=== PATIENT | male | born 1965 | race Caucasian/White ===

== ENCOUNTER 2019-08-11 00:03 | Emergency (ER) | payer BC, OTHER ==
[2019-08-11 00:15] VITALS: BP 126/75; PULSE 85
[2019-08-11] MEDS ORDERED: Ondansetron 4 MG/2 ML SDV IVPUSH ONE (00:30)
[2019-08-11] MEDS ORDERED: HYDROmorphone 1 MG/ML Syringe IVPUSH ONE (00:30)
[2019-08-11] MEDS ORDERED: Ketorolac 30 MG/ML SDV IVPUSH ONE (00:31)
--- NOTE | 2019-08-11 00:36 | EDM.PDOC ---
ED HPI GENERAL MEDICAL PROBLEM - General Chief Complaint: Flank Pain Stated Complaint: KIDNEY PAIN RIGHT SIDE Time Seen by Provider: 08/11/19 00:23 Source of Information: Reports: Patient History Limitations: Reports: No Limitations - History of Present Illness INITIAL COMMENTS - FREE TEXT/NARRATIVE: This is a 54-year-old male. Onset with right mid back pain. 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 It hurt with movement and hurt without movement. The next day he continued to do a lot of lifting and bending and did some driving and the pain continued to get worse and worse he had a difficult time sleeping Monday night secondary to the right flank pain. He denies any nausea or vomiting with the pain but it does stop them in his tracks and he feels like he is having muscle spasms as well as just pain. On one occasion he felt like the pain went down into his right lower quadrant like the pain of a kidney stone but he has no history of kidney stones. He has not seen any blood in his urine he has not had any fever or chills. Due to the increasing pain he comes to the ER. Right Flank Pain Score (Numeric/FACES): 10 - Related Data Allergies Allergy/AdvReac Type Severity Reaction Status Date / Time aspirin Allergy Severe Bleeding Verified 08/11/19 00:15 NSAIDS (Non-Steroidal Allergy Severe Bleeding Verified 08/11/19 00:15 Anti-Inflamma Home Meds: Home Meds LORazepam [Ativan] 1 mg PO ASDIRECTED PRN #15 tablet 05/12/15 [Rx] Cyclobenzaprine [Flexeril] 10 mg PO TID PRN #20 tab 08/11/19 [Rx] Past Medical History Other Respiratory History: left hemothorax - Past Surgical History Other Musculoskeletal Surgeries/Procedures:: reconstruction of knees ED ROS GENERAL - Review of Systems Review Of Systems: See Below Constitutional: Denies: Fever, Chills HEENT: Reports: No Symptoms Respiratory: Reports: Shortness of Breath, Other (Shortness of breath is secondary to the pain not because he short of breath) Cardiovascular: Reports: No Symptoms Endocrine: Reports: No Symptoms GI/Abdominal: Reports: Abdominal Pain. Denies: Constipation, Diarrhea, Nausea, Vomiting : Reports: Flank Pain. Denies: Dysuria, Hematuria Musculoskeletal: Reports: Back Pain Skin: Reports: No Symptoms Neurological: Reports: No Symptoms Psychiatric: Reports: No Symptoms Hematologic/Lymphatic: Reports: No Symptoms ED EXAM,LOWER BACK PAIN/INJURY - Physical Exam Exam: See Below Exam Limited By: No Limitations General Appearance: Alert, WD/WN, Moderate Distress Eye Exam: Bilateral Eye: Normal Inspection Ears: Normal External Exam Nose: Normal Inspection Throat/Mouth: Normal Inspection, Normal Lips, Normal Voice, No Airway Compromise Head: Normocephalic Neck: Supple Respiratory/Chest: Lungs Clear, Other (Patient is having a hard time breathing because deep breathing causes increased pain in his right flank area, his lungs are clear however there is no rales wheezes or rhonchi.) Cardiovascular: Regular Rate, Rhythm, No Murmur GI/Abdominal: Other (Tender in the right flank as well, bowel sounds are decreased, he tends to keep his abdomen tight, it is difficult to palpate his abdomen since he is holding it so tightly, my concern is this could be a rigid abdomen. He is the pain up he seemed to have a soft abdomen and didn't really complain pushing on that right side however once I got around to the edge of his right ribs laterally and posteriorly had marked increased pain. ) Back Exam: CVA Tenderness (R), Decreased Range of Motion, Muscle Spasm Extremities: Normal Inspection, Normal Range of Motion Neurological: Alert, Normal Mood/Affect, No Motor/Sensory Deficits Psychiatric: Anxious Skin Exam: Warm, Dry Course - Vital Signs Last Recorded V/S: Last Vital Signs Temp 97.6 F 08/11/19 00:12 Pulse 85 08/11/19 00:12 Resp 20 08/11/19 00:12 BP 126/75 08/11/19 00:12 Pulse Ox 98 08/11/19 00:12 - Orders/Labs/Meds Orders: Active Orders 24 hr Category Date Time Status Abdomen Pelvis wo Cont [CT] Stat Exams 08/11/19 00:31 Taken Magnesium Citrate [Citrate of Magnesia] Med 08/11/19 02:51 Once 296 ml PO ONETIME ONE Labs: Laboratory Tests 08/11/19 08/11/19 08/11/19 Range/Units 00:21 00:21 00:21 WBC 13.38 H (4.23-9.07) K/mm3 RBC 5.13 (4.63-6.08) M/mm3 Hgb 16.0 (13.7-17.5) gm/dl Hct 46.1 (40.1-51.0) % MCV 89.9 (79.0-92.2) fl MCH 31.2 (25.7-32.2) pg MCHC 34.7 (32.2-35.5) g/dl RDW Std Deviation 46.0 H (35.1-43.9) fL Plt Count 386 H (163-337) K/mm3 MPV 9.1 L (9.4-12.3) fl Neut % (Auto) 51.8 (34.0-67.9) % Lymph % (Auto) 33.0 (21.8-53.1) % [place] % (Auto) 11.5 (5.3-12.2) % Eos % (Auto) 3.0 (0.8-7.0) Baso % (Auto) 0.5 (0.1-1.2) % Neut # (Auto) 6.93 H (1.78-5.38) K/mm3 Lymph # (Auto) 4.41 H (1.32-3.57) K/mm3 Motley # (Auto) 1.54 H (0.30-0.82) K/mm3 Eos # (Auto) 0.40 (0.04-0.54) K/mm3 Baso # (Auto) 0.07 (0.01-0.08) K/mm3 Manual Slide Review Abnormal smear Sodium 137 (136-145) mEq/L Potassium 3.6 (3.5-5.1) mEq/L Chloride 102 (98-107) mEq/L Carbon Dioxide 20 L (21-32) mEq/L Anion Gap 18.6 H (5-15) BUN 14 (7-18) mg/dL Creatinine 1.1 (0.7-1.3) mg/dL Est Cr Clr Drug Dosing 83.67 mL/min Estimated GFR (MDRD) > 60 (>60) mL/min BUN/Creatinine Ratio 12.7 L (14-18) Glucose 128 H (74-106) mg/dL Calcium 9.6 (8.5-10.1) mg/dL Total Bilirubin 0.3 (0.2-1.0) mg/dL AST 20 (15-37) U/L ALT 37 (16-63) U/L Alkaline Phosphatase 128 H (46-116) U/L C-Reactive Protein 1.7 H* (<1.0) mg/dL Total Protein 7.9 (6.4-8.2) g/dl Albumin 3.7 (3.4-5.0) g/dl Globulin 4.2 gm/dL Albumin/Globulin Ratio 0.9 L (1-2) Urine Color (Yellow) Urine Appearance (Clear) Urine pH (5.0-8.0) Ur Specific [place] (1.005-1.030) Urine Protein (Negative) Urine Glucose (UA) (Negative) Urine Ketones (Negative) Urine Occult Blood (Negative) Urine Nitrite (Negative) Urine Bilirubin (Negative) Urine Urobilinogen (0.2-1.0) Ur Leukocyte Esterase (Negative) Urine RBC (0-5) /hpf Urine WBC (0-5) /hpf Ur Epithelial Cells (0-5) /hpf Calcium Oxalate Crystal (NONE) Urine Bacteria (FEW) /hpf Hyaline Casts (0-5) /lpf Urine Mucus (FEW) /hpf 08/11/19 Range/Units 01:29 WBC (4.23-9.07) K/mm3 RBC (4.63-6.08) M/mm3 Hgb (13.7-17.5) gm/dl Hct (40.1-51.0) % MCV (79.0-92.2) fl MCH (25.7-32.2) pg MCHC (32.2-35.5) g/dl RDW Std Deviation (35.1-43.9) fL Plt Count (163-337) K/mm3 MPV (9.4-12.3) fl Neut % (Auto) (34.0-67.9) % Lymph % (Auto) (21.8-53.1) % [place] % (Auto) (5.3-12.2) % Eos % (Auto) (0.8-7.0) Baso % (Auto) (0.1-1.2) % Neut # (Auto) (1.78-5.38) K/mm3 Lymph # (Auto) (1.32-3.57) K/mm3 [place] # (Auto) (0.30-0.82) K/mm3 Eos # (Auto) (0.04-0.54) K/mm3 Baso # (Auto) (0.01-0.08) K/mm3 Manual Slide Review Sodium (136-145) mEq/L Potassium (3.5-5.1) mEq/L Chloride (98-107) mEq/L Carbon Dioxide (21-32) mEq/L Anion Gap (5-15) BUN (7-18) mg/dL Creatinine (0.7-1.3) mg/dL Est Cr Clr Drug Dosing mL/min Estimated GFR (MDRD) (>60) mL/min BUN/Creatinine Ratio (14-18) Glucose (74-106) mg/dL Calcium (8.5-10.1) mg/dL Total Bilirubin (0.2-1.0) mg/dL AST (15-37) U/L ALT (16-63) U/L Alkaline Phosphatase (46-116) U/L C-Reactive Protein (<1.0) mg/dL Total Protein (6.4-8.2) g/dl Albumin (3.4-5.0) g/dl Globulin gm/dL Albumin/Globulin Ratio (1-2) Urine Color Yellow (Yellow) Urine Appearance Clear (Clear) Urine pH 5.5 (5.0-8.0) Ur Specific [place] > or = 1.030 (1.005-1.030) Urine Protein Trace H (Negative) Urine Glucose (UA) Trace H (Negative) Urine Ketones 1+ H (Negative) Urine Occult Blood Negative (Negative) Urine Nitrite Negative (Negative) Urine Bilirubin 1+ H (Negative) Urine Urobilinogen 0.2 (0.2-1.0) Ur Leukocyte Esterase Negative (Negative) Urine RBC 0-5 (0-5) /hpf Urine WBC 0-5 (0-5) /hpf Ur Epithelial Cells Not seen (0-5) /hpf Calcium Oxalate Crystal Few H (NONE) Urine Bacteria Few (FEW) /hpf Hyaline Casts 0-5 (0-5) /lpf Urine Mucus Many H (FEW) /hpf Meds: Medications Discontinued Medications Generic Name Dose Route Start Last Admin Trade Name Freq PRN Reason Stop Dose Admin Hydromorphone HCl 1 mg 08/11/19 00:30 08/11/19 00:41 Dilaudid IVPUSH 08/11/19 00:31 1 mg ONETIME ONE Administration Ketorolac Tromethamine 30 mg 08/11/19 00:31 08/11/19 00:39 Toradol IVPUSH 08/11/19 00:32 30 mg ONETIME ONE Administration Ondansetron HCl 4 mg 08/11/19 00:30 08/11/19 00:37 Zofran IVPUSH 08/11/19 00:31 4 mg ONETIME ONE Administration Orphenadrine Citrate 100 mg 08/11/19 01:48 08/11/19 01:52 Norflex PO 08/11/19 01:49 100 mg ONETIME ONE Administration - Radiology Interpretation Free Text/Narrative:: CT scan of the abdomen revealed a normal appendix and no evidence of kidney stones, he was noted to have a very large amounts of stool in his right colon. - Re-Assessments/Exams Free Text/Narrative Re-Assessment/Exam: 08/11/19 02:51 I spoke to the patient regarding his CT scan results that all was normal he does not have a kidney stone his appendix is normal but he does have lots of stool in the right colon. After the muscle relaxer much of his pain is resolved though he has a dull ache in the side which probably is related to his colon more than his muscles. I believe he is pulled something in his back causing severe muscle spasms but also I believe that his colon that's. Stool is part of his problem as well. He is going to go home with a bottle of mag citrate given instructions on how to use it. Departure - Departure Time of Disposition: 02:52 Disposition: Home, Self-Care 01 Condition: Fair Clinical Impression: Acute right flank pain, Spasm of muscle, back, Constipation by delayed colonic transit - Discharge Information *PRESCRIPTION DRUG MONITORING PROGRAM REVIEWED*: Not Applicable *COPY OF PRESCRIPTION DRUG MONITORING REPORT IN PATIENT BANDAR: Not Applicable Prescriptions: Cyclobenzaprine [Flexeril] 10 mg PO TID PRN #20 tab PRN Reason: Spasms Instructions: Muscle Cramps and Spasms, [id number] Referrals: PCP,None [Primary Care Provider] - Forms: ED Department Discharge, ED Return to Work/School Form Additional Instructions: Take the muscle relaxers as needed for the severe back pain, continue with the Tylenol as needed, with the mag citrate take one half bottle when you wake up drink lots of water and juice and if you do not have any bowel movement results in 12 hours drink the second half and continue with lots of fluids, over the next 3 or 4 days you need to be doing nothing as far as lifting or bending or straining, use heat or ice to your back as needed for comfort, follow-up with your family doctor later this week for recheck or return to the ER if your symptoms worsen markedly - My Orders Last 24 Hours: My Active Orders 08/11/19 00:31 Abdomen Pelvis wo Cont [CT] Stat 08/11/19 02:51 Magnesium Citrate [Citrate of Magnesia] 296 ml PO ONETIME ONE - Assessment/Plan Last 24 Hours: My Active Orders 08/11/19 00:31 Abdomen Pelvis wo Cont [CT] Stat 08/11/19 02:51 Magnesium Citrate [Citrate of Magnesia] 296 ml PO ONETIME ONE
[2019-08-11] MEDS ORDERED: Orphenadrine 100 MG Tab.ER PO ONE (01:48)
[2019-08-11] MEDS ORDERED: Magnesium Citrate Solution 296 ML Bottle PO ONE (02:51)
--- NOTE | 2019-08-11 08:30 | CT ---
CT abdomen and pelvis Technique: Multiple axial sections were obtained from above the dome of the diaphragm inferiorly through the pubic symphysis. Intravenous and oral contrast was not utilized. Study has been performed as a ureteral stone protocol. Comparison: No prior abdominal imaging is available. Findings: Kidneys show no abnormal calcifications. Visualized lung bases show areas of atelectasis. Noncontrast appearance of the liver shows no focal abnormality. Spleen appears within normal limits. Adrenal glands show no nodule. Pancreas is within normal limits. Aorta shows no aneurysm. No retroperitoneal adenopathy or mesenteric abnormalities are seen. No pelvic mass or adenopathy is seen. Appendix is seen which is normal in size. Diverticuli are seen within the sigmoid colon with no evidence of diverticulitis. No free fluid or inflammatory change is seen. Focal stool is noted within the right colon. Bone window settings were reviewed which shows minimal scattered degenerative change. Small fat-containing umbilical hernia is noted. Impression: 1. No renal calculi, ureteral dilatation or ureteral stone is seen. 2. Focal stool within the right colon. 3. Appendix appears normal. Nothing acute is appreciated on noncontrast CT study of the abdomen and pelvis. Diagnostic code #2 I agree with preliminary report from [facility], finalized on 08/11/19, 2:34 AM Central Time
== END 2019-08-11 03:07 | disposition home or self-care (01) ==
LOC: JD.ED 00:03
DX: M62.830 Muscle spasm of back (principal); R10.9 Unspecified abdominal pain; K59.01 Slow transit constipation; Z88.6 Allergy status to analgesic agent
CPT/HCPCS: 36415; 74176; 80053; 81001; 85025; 86140; 96374; 96375; 99284; A9270; J1170; J1885; J2405

== ENCOUNTER 2019-08-15 13:25 | Emergency (ER) | payer BC ==
--- NOTE | 2019-08-15 13:48 | EDM.PDOC ---
ED HPI GENERAL MEDICAL PROBLEM - General Chief Complaint: Back Pain or Injury Stated Complaint: BACK PAIN Time Seen by Provider: 08/15/19 13:45 - History of Present Illness INITIAL COMMENTS - FREE TEXT/NARRATIVE: 54-year-old male presents emergency room with back pain. This pain has been going on for about a week now. He was seen here in the emergency room on Monday started on Flexeril which is helping. However, it gets worse again every time he tries to do anything. The patient denies wanting any more medication however he's post return to work tomorrow and does not feel like he would be able to do this. The patient developed this pain about a week ago mostly on the right side of his back. The patient was seen here on Monday and they ruled out a kidney stone did a CAT scan blood work and urine study. At work is been doing a bunch of repetitive lifting but does not recall any specific trigger that would cause the back pain. He has had no loss of bowel or bladder control he has no pain shooting into his extremities. He denies any numbness or weakness in the extremities. Patient was thought to perhaps be constipated he was given mag citrate and is no longer having problems with this. Right Flank Pain Score (Numeric/FACES): 6 - Related Data Allergies Allergy/AdvReac Type Severity Reaction Status Date / Time aspirin AdvReac Severe Bleeding Verified 08/12/19 13:20 NSAIDS (Non-Steroidal AdvReac Severe Bleeding Verified 08/12/19 13:20 Anti-Inflamma Home Meds: Home Meds Cyclobenzaprine [Flexeril] 10 mg PO TID PRN #20 tab 08/11/19 [Rx] Past Medical History Other Respiratory History: left hemothorax - Past Surgical History Other Musculoskeletal Surgeries/Procedures:: reconstruction of knees Social & Family History - Caffeine Use Caffeine Use: Reports: None ED ROS GENERAL - Review of Systems Review Of Systems: See Below Constitutional: Reports: No Symptoms Respiratory: Reports: No Symptoms Cardiovascular: Reports: No Symptoms GI/Abdominal: Reports: No Symptoms : Reports: No Symptoms ED EXAM,LOWER BACK PAIN/INJURY - Physical Exam Exam: See Below Exam Limited By: No Limitations General Appearance: Alert, No Apparent Distress Head: Atraumatic, Normocephalic Neck: Normal Inspection, Supple, Non-Tender, Full Range of Motion Respiratory/Chest: No Respiratory Distress, Lungs Clear, Normal Breath Sounds Cardiovascular: Regular Rate, Rhythm, No Edema, No Murmur GI/Abdominal: Normal Bowel Sounds, Soft, Non-Tender Extremities: Normal Inspection, Other (No midline discomfort he has marked spasm in the right sided lumbar paraspinous region) Neurological: Normal Mood/Affect Course - Vital Signs Last Recorded V/S: Last Vital Signs Temp 37.2 C 08/15/19 13:51 Pulse 89 08/15/19 13:51 Resp 20 08/15/19 13:51 BP 131/95 H 08/15/19 13:51 Pulse Ox 100 08/15/19 13:51 - Re-Assessments/Exams Free Text/Narrative Re-Assessment/Exam: 08/15/19 14:37 Patient is not drug seeking he is not asking is flat said he does not want any more medication he'll take the Flexeril as prescribed through Monday. I will give him a return to work on Monday form. Departure - Departure Time of Disposition: 14:38 Disposition: Home, Self-Care 01 Clinical Impression: Lumbar strain, Spasm of muscle, back - Discharge Information Referrals: PCP,None [Primary Care Provider] - Forms: ED Department Discharge, ED Return to Work/School Form Additional Instructions: Return to the emergency room if any questions or problems. Follow-up with your regular doctor or Dr. Liz on Monday if needed. You may also follow-up at the Hospital clinic here [phone]. As we discussed continue taking the Flexeril 3 times daily through Monday as prescribed. After you return to work no heavy lifting don't try lifting anything heavier than 20 pounds.
[2019-08-15 13:53] VITALS: BP 131/95; PULSE 89
== END 2019-08-15 14:45 | disposition home or self-care (01) ==
LOC: JD.ED 13:25
DX: S39.012A Strain of muscle, fascia and tendon of lower back, initial encounter (principal); Z88.6 Allergy status to analgesic agent; X58.XXXA Exposure to other specified factors, initial encounter
CPT/HCPCS: 99282; 99283